=== PATIENT | female | born 2000 | race Caucasian/White ===

== ENCOUNTER 2023-06-15 19:08 | Emergency (ER) | payer SELFPAY ==
[2023-06-15 19:11] VITALS: BP 121/81; PULSE 69; TEMP 36.5; O2SAT 100; BMI 21.9
--- NOTE | 2023-06-15 19:31 | CT_ITS ---
The [address] [address] Patient Name: JESSICA BOURGEOIS MRN: [id number] date: 2000 Sex: F Assigned Patient Location: ER Current Patient Location: .MAIN Accession/Order Number: [id number] Exam Date: 06/15/2023 20:37 Report Date: 06/15/2023 21:28 At the request of: CORAZON MARKER Procedure: CT head/brain wo con EXAMINATION: CT head/brain wo con HISTORY: numbness bilateral feet and numbness. Lightheadedness. COMPARISON: None. TECHNIQUE: CT head without contrast. Dose reduction techniques were achieved by using: automated exposure control and/or adjustment of mA and /or kV according to patient size and/or use of iterative reconstruction technique. FINDINGS: The ventricles and sulci are within normal limits in size and configuration for age. There is no evidence for acute intracranial hemorrhage. There are no foci of abnormal parenchymal attenuation. There is no mass effect or midline shift. There are no abnormal extraaxial fluid collections. CT/CT head/brain wo con IMPRESSION: Negative for acute hemorrhage or acute intracranial process. Electronically authenticated by: MARK ANSARI Date: 06/15/2023 21:28
--- NOTE | 2023-06-15 19:32 | ED_ITS ---
HPI - Neuro Symptoms/Deficit General Chief Complaint: Neuro Symptoms/Deficit Stated Complaint: Feet Numbness Time Seen by Provider: 06/15/23 19:12 Source: patient Mode of arrival: walk-in Limitations: no limitations History of Present Illness HPI Narrative: This 23-year-old female with no significant medical history who does not smoke or drink and is not on control presents for evaluation of numbness and ti ngling of her feet and hands. The patient states she woke up this morning and her hands and feet had a pins and needle sensation. 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 She also dropped several things today. She still is haviing some numbness and tingling of her hands and feet. She has no headache, weakness, blurred vision slurred speech or confusion. She does possibility of because she is not sexually active. She denies any urinary symptoms. She has some mild right low back pain that she has had for the past several days but feels that as a posture issue. She has no low back or neck pain. She states she also thought she may be hungry and had lunch earlier today but her symptoms did not resolve. She complained of some nausea to the nurse doing her intake but denies any vomiting or diarrhea. She has not recently had any fevers or chills. She has no neck pain or stiffness. Related Data Home Medications ?Medication ?Instructions ?Recorded ?Confirmed No Known Home Medications 06/15/23 06/15/23 Allergies Allergy/AdvReac Type Severity Reaction Status Date / Time No Known Drug Allergies Allergy Verified 06/15/23 19:17 Review of Systems ROS Status of ROS 10 or more systems reviewed and unremark able except as noted in history and below Exam Narrative Exam Narrative: Nurses note and vital signs reviewed and patient is not hypoxic. General: The patient appears well and in no apparent distress. Patient is resting comfortably on cart. Skin: Warm, dry, no pallor noted. There is no rash noted. Head: Normocephalic, atraumatic Eye: Normal conjunctiva, no drainage, EOMI. PERRL. No photophobia Neck: Supple, no meningeal signs Ears, Nose, Mouth, and Throat: oral mucosa is moist. Nares patent. Mouth without vesicles. Cardiovascular: Regular Rate and Rhythm S1S2, no murmurs, rubs or gallops, pulses are brisk and equal in the upper and lower extremities Respiratory: Patient is in no distress, no accessory muscle use, lungs are clear to auscultation, no wheezing, rales or rhonchi Back: non-tender, no CVA tenderness bilaterally to percussion. GI: Normal bowel sounds, no tenderness to palpation, no masses appreciated. No rebound, guarding, or rigidity noted. Musculoskeletal: Feet and hands are warm and sensate. Capillary refill is normal. There is no calf tenderness or swelling. Pulses are brisk and equal bilaterally. [employer] strength is intact and the patient is able to approximate thumb and all fingers. Push and pull of the feet is normal. She is able to move all of her toes. Neurological: A&O x4, normal speech, Negative pronator drift, positive rapid alternating hand movements, NIH stroke scale is 0 Psychiatric: Cooperative, Mildly anxious Constitutional Vital Signs, click to edit/add: Last Vital Signs Temp 97.7 F 06/15/23 19:11 Pulse 69 06/15/23 19:11 Resp 18 06/15/23 19:11 BP 121/81 06/15/23 19:11 Pulse Ox 100 06/15/23 19:11 O2 Del Method Room Air 06/15/23 19:11 Course Vital Signs Vital signs: Vital Signs Temperature 97.7 F 06/15/23 19:11 Pulse Rate 69 06/15/23 19:11 Respiratory Rate 18 06/15/23 19:11 Blood Pressure 121/81 06/15/23 19:11 Pulse Oximetry 100 06/15/23 19:11 Oxygen Delivery Method Room Air 06/15/23 19:11 Temperature 97.7 F 06/15/23 19:11 Pulse Rate 69 06/15/23 19:11 Respiratory Rate 18 06/15/23 19:11 Blood Pressure 121/81 06/15/23 19:11 Pulse Oximetry 100 06/15/23 19:11 Oxygen Delivery Method Room Air 06/15/23 19:11 MDM - Neuro Symptoms/Deficit MDM Narrative Medical decision making narrative: This 23-year-old female with no significant medical history who does not smoke or drink and is not on control presents for evaluation of paresthesias in her hands and feet upon awakening this morning. She denies any specific pain or weakness. She does not have a headache or neck pain. She has some minimal right sided low back pain. She denies any trauma. She has not had any bowel or bladder dysfunction. She states she was clumsy at work this morning. She works at a veterinary office and states that she was dropping things. She thought her sugar may be low so she had lunch but the symptoms persisted. Her physical exam is benign. Her neuro exam is benign. IV was placed and routine labs are ordered. She has normal white count and hemoglobin. Electrolytes are normal the exception of a mildly low potassium at 3.4. Urine is negative for infection and test is negative. CT scan of the brain is negative for acute findings. The report was discussed with her and she was given a copy for her records. OARRs was reviewed and is negative. She was re-evaluated and states that she is feeling better but still having some tingling in her feet and wonders if stress could be causing her symptoms. I asked her if she was stressed out and she responded that Im a college student . I assume that is a yes answer and I ordered a dose of po valium for her. Her physical exam is normal and her workup is benign. Her symptoms may be related to some degree of anxiety. She will be discharged home with a prescription for hydroxyzine to use for ongoing symptoms that could be related to anxiety and she will be referred outpatient family medicine. Medical Records Medical records narrative: The [address] [address] [address] Scan Report Signed Patient: JESSICA BOURGEOIS MR#: [id number] : 2000 Acct:[id number] Age/Sex: 23 / F ADM Date: 06/15/23 Loc: ER Attending Dr: Ordering Physician: Iraida Garcia Date of Service: 06/15/23 Procedure(s): CT head/brain wo con Accession Number(s): [id number] cc: PhysicianNon-Staff Marilu~ The [address] [address] Patient Name: JESSICA BOURGEOIS MRN: [id number] date: 2000 Sex: F Assigned Patient Location: ER Current Patient Location: ED.MAIN Accession/Order Number: [id number] Exam Date: 06/15/2023 20:37 Report Date: 06/15/2023 21:28 At the request of: IRAIDA KYLE Procedure: CT head/brain wo con EXAMINATION: CT head/brain wo con HISTORY: numbness bilateral feet and numbness. Lightheadedness. COMPARISON: None. TECHNIQUE: CT head without contrast. Dose reduction techniques were achieved by using: automated exposure control and/or adjustment of mA and /or kV according to patient size and/or use of iterative reconstruction technique. FINDINGS: The ventricles and sulci are within normal limits in size and configuration for age. There is no evidence for acute intracranial hemorrhage. There are no foci of abnormal parenchymal attenuation. There is no mass effect or midline shift. There are no abnormal extraaxial fluid collections. CT/CT head/brain wo con IMPRESSION: Negative for acute hemorrhage or acute intracranial process. Electronically authenticated by: MARK ANSARI Date: 06/15/2023 21:28 Lab Data Attestation: I reviewed the patient's lab results. Labs: Lab Results 06/15/23 06/15/23 Range/Units 19:40 19:50 WBC 8.9 (4.0-11.0) 10^3/uL RBC 4.19 L (4.20-5.40) 10^6/uL Hgb 13.4 (12.0-16.0) g/dL Hct 39.8 (36.0-48.0) % MCV 95.0 (81.0-99.0) fL MCH 32.0 (26.7-34.0) pg MCHC 33.7 (29.9-35.2) g/dL RDW 11.5 (11.0-15.0) % Plt Count 266 (150-450) 10^3/uL MPV 10.5 (9.5-13.5) fL Neut % (Auto) 54.0 (43.0-75.0) % Lymph % (Auto) 36.8 (20.5-60.0) % [place] % (Auto) 6.3 (1.7-12.0) % Eos % (Auto) 2.0 (0.9-7.0) % Baso % (Auto) 0.8 (0.2-2.0) % Neut # (Auto) 4.8 (1.4-6.5) 10^3/uL Lymph # (Auto) 3.3 (1.2-3.8) 10^3/uL [place] # (Auto) 0.6 (0.3-0.8) 10^3/uL Eos # (Auto) 0.2 (0.0-0.7) 10^3/uL Baso # (Auto) 0.1 (0.0-0.1) 10^3/uL Abs Immat Gran (auto) 0.01 (0.00-0.03) 10^3/uL Imm/Tot Granulo (auto) 0.1 (0.0-0.5) % Sodium 140 (136-145) mmol/L Potassium 3.4 L (3.5-5.1) mmol/L Chloride 104 (98-107) mmol/L Carbon Dioxide 30.1 (21.0-32.0) mmol/L Anion Gap 9.3 BUN 7.0 (7.0-18.0) mg/dL Creatinine 0.75 (0.55-1.02) mg/dL Est GFR ( Amer) >60 (>=60) Est GFR (Non-Af Amer) >60 (>=60) BUN/Creatinine Ratio 9.3 Glucose 99 (74-106) mg/dL Calcium 8.7 (8.5-10.1) mg/dL Magnesium 1.9 (1.8-2.4) mg/dL Total Bilirubin 0.5 (0.2-1.0) mg/dL AST 24 (15-37) U/L ALT 61 H (14-59) U/L Alkaline Phosphatase 53 (46-116) U/L Total Protein 7.3 (6.4-8.2) g/dL Albumin 4.0 (3.4-5.0) g/dL Globulin 3.3 g/dL Albumin/Globulin Ratio 1.2 Urine Color Lt. yellow (YELLOW) Urine Clarity Clear (CLEAR) Urine pH 7.0 (5.0-9.0) Ur Specific [place] 1.010 (1.005-1.025) Urine Protein Negative (NEG/TRACE) mg/dL Urine Glucose (UA) Negative (NEGATIVE) mg/dL Urine Ketones Negative (NEGATIVE) mg/dL Urine Occult Blood Negative (NEGATIVE) Urine Nitrite Negative (NEGATIVE) Urine Bilirubin Negative (NEGATIVE) Urine Urobilinogen 1.0 (0.2-1.0) EU/dL Ur Leukocyte Esterase Negative (NEGATIVE) Urine RBC None seen (0-2) #/HPF Urine WBC 0-2 A (NONE SEEN) #/HPF Ur Squamous Epith Cells Many A (NONE/RARE) #/LPF Urine Crystals None seen (None Seen) #/HPF Amorphous Sediment Rare Urine Bacteria None seen (NONE SEEN) #/HPF Urine Casts None seen (NONE SEEN) #/LPF Urine Mucus None seen (NONE SEEN) Ur Culture Indicated? No Urine HCG, Qual Negative (NEGATIVE) Discharge Plan Discharge Stand Alone Forms: Portal Instructions Chief Complaint: Neuro Symptoms/Deficit Clinical Impression: Paresthesia of both feet, Paresthesia of both hands Patient Disposition: Home, Self-Care Time of Disposition Decision: 21:39 Condition: Good Prescriptions / Home Meds: No Action No Known Home Medications Print Language: Yoruba Instructions: Paresthesia (ED) Referrals: Physician,Non-Staff, MD [Primary Care Provider] - 1 week
[2023-06-15] MEDS: 0.9 % SODIUM CHLORIDE 1,000 ML 1000 ML IV (19:53)
[2023-06-15] MEDS: KETOROLAC TROMETHAMINE 30 MG/ML VIAL 15 MG IVP (19:53)
[2023-06-15 19:56] LABS: Basophils Absolute Auto 0.1 10^3/uL (0.0-0.1); Basophils Percent Auto 0.8 % (0.2-2.0); Eosinophils Absolute Auto 0.2 10^3/uL (0.0-0.7); Hematocrit 39.8 % (36.0-48.0); Hemoglobin 13.4 g/dL (12.0-16.0); Immature Granulocytes Abs Auto 0.01 10^3/uL (0.00-0.03); Immature Granulocytes Pct Auto 0.1 % (0.0-0.5); Lymphocytes Absolute Auto 3.3 10^3/uL (1.2-3.8); Lymphocytes Percent Auto 36.8 % (20.5-60.0); Mean Corpuscular HGB Conc 33.7 g/dL (29.9-35.2); Mean Platelet Volume 10.5 fL (9.5-13.5); Monocytes Absolute Auto 0.6 10^3/uL (0.3-0.8); Monocytes Percent Auto 6.3 % (1.7-12.0); Neutrophils Absolute Auto 4.8 10^3/uL (1.4-6.5); Platelet Count 266 10^3/uL (150-450); Red Blood Count 4.19 10^6/uL (4.20-5.40); Red Cell Distribution Width 11.5 % (11.0-15.0); White Blood Count 8.9 10^3/uL (4.0-11.0)
[2023-06-15 19:57] LABS: Bilirubin Urine NEGATIVE (NEGATIVE); Blood Urine NEGATIVE (NEGATIVE); Clarity Urine CLEAR (CLEAR); Color Urine LT. YELLOW (YELLOW); Glucose Urine UA NEGATIVE (NEGATIVE); Ketones Urine NEGATIVE (NEGATIVE); Leukocyte Esterase Urine NEGATIVE (NEGATIVE); Nitrite Urine NEGATIVE (NEGATIVE); Protein Urine NEGATIVE (NEG/TRACE)
[2023-06-15 20:00] LABS: HCG Qualitative Urine* NEGATIVE (NEGATIVE)
[2023-06-15 20:07] LABS: Amorphous Sediment Urine RARE; Bacteria Urine NONE SEEN #/HPF (NONE SEEN); Cast Seen? NONE SEEN #/LPF (NONE SEEN); Crystals Seen? None Seen #/HPF (None Seen); Mucus Urine NONE SEEN (NONE SEEN); RBC Urine NONE SEEN #/HPF (0-2); Squamous Epithelial Cell Urine MANY #/LPF (NONE/RARE); Urine Culture Indicated NO; WBC Urine 0-2 #/HPF (NONE SEEN)
[2023-06-15 20:14] LABS: Alanine Aminotransferase 61 U/L (14-59); Albumin Globulin Ratio 1.2; Alkaline Phosphatase 53 U/L (46-116); Anion Gap 9.3; Aspartate Amino Transferase 24 U/L (15-37); BUN Creatinine Ratio 9.3; Bilirubin Total 0.5 mg/dL (0.2-1.0); Calcium 8.7 mg/dL (8.5-10.1); Carbon Dioxide 30.1 mmol/L (21.0-32.0); Chloride 104 mmol/L (98-107); Estimated GFR (African America >60 (>=60); Estimated GFR (Non-African Ame >60 (>=60); Globulin 3.3 g/dL; Glucose 99 mg/dL (74-106); Magnesium 1.9 mg/dL (1.8-2.4); Potassium 3.4 mmol/L (3.5-5.1); Sodium 140 mmol/L (136-145); Total Protein 7.3 g/dL (6.4-8.2)
[2023-06-15] MEDS: DIAZEPAM 5 MG TABLET PO (21:09)
== END 2023-06-15 21:50 | disposition home or self-care (01) ==
PROVIDERS: Emergency Provider Emergency Medicine
DX: R20.2 Paresthesia of skin (principal)
CPT/HCPCS: 36415; 70450; 80053; 81001; 83735; 84703; 85025; 96374; 99285